=== PATIENT | male | born 1965 | race Two or more races ===

== ENCOUNTER 2017-02-12 11:22 | Emergency (ER) | payer BC ==
--- NOTE | 2017-02-12 12:05 | ER Document Report ---
ED Medical Screen (RME) - General Stated Complaint: FALL ARM PAIN Notes: Issue fell on right elbow last Saturday. Did have a small cut on it at the time. Comes in today complaining of pain, redness and swelling to the right elbow. She reports he's had a fever. I have greeted and performed a rapid initial assessment of this patient. A comprehensive ED assessment and evaluation of the patient, analysis of test results and completion of the medical decision making process will be conducted by additional ED providers. - Related Data Allergies/Adverse Reactions: No Known Allergies Allergy (Verified 02/12/17 12:01) Physical Exam - Extremities Notes: Redness and swelling noted to right elbow. Healed laceration noted.
[2017-02-12 12:45] LABS: ABSOLUTE EOSINOPHILS # (AUTO) 0.1 10^3/uL (0.0-0.6); ABSOLUTE LYMPHOCYTES (AUTO) 1.5 10^3/uL (0.5-4.7); ABSOLUTE MONOCYTES (AUTO) 0.5 10^3/uL (0.1-1.4); BASOPHILS % (AUTO) 0.7 % (0-2); EOSINOPHILS % (AUTO) 1.6 % (0-6); HEMATOCRIT 42.9 % (37.9-51.0); HEMOGLOBIN 14.6 g/dL (13.5-17.0); HGB HCT DIFFERENCE 0.9; LYMPHOCYTES % (AUTO) 21.1 % (13-45); MEAN CORPUSCULAR HEMOGLOBIN 30.1 pg (27.0-33.4); MEAN CORPUSCULAR HGB CONC 34.1 g/dL (32.0-36.0); MEAN CORPUSCULAR VOLUME 88 fl (80-97); MONOCYTES % (AUTO) 6.8 % (3-13); RED BLOOD COUNT 4.86 10^6/uL (4.35-5.55); RED CELL DISTRIBUTION WIDTH 13.3 % (11.5-14.0); SEGMENTED NEUTROPHILS % (AUTO) 69.8 % (42-78); WHITE BLOOD COUNT 7.1 10^3/uL (4.0-10.5)
[2017-02-12 12:58] LABS: ALANINE AMINOTRANSFERASE 23 U/L (21-72); ALBUMIN 4.4 g/dL (3.5-5.0); ALKALINE PHOSPHATASE 60 U/L (38-126); ANION GAP 15 (5-19); ASPARTATE AMINO TRANSFERASE 26 U/L (17-59); BILIRUBIN,DIRECT 0.3 mg/dL (0.0-0.4); BILIRUBIN,TOTAL 0.8 mg/dL (0.2-1.3); BLOOD UREA NITROGEN 18 mg/dL (7-20); CALCIUM 9.6 mg/dL (8.4-10.2); CARBON DIOXIDE 26 mmol/L (22-30); CHLORIDE 105 mmol/L (98-107); GLUCOSE 106 mg/dL (75-110); POTASSIUM 4.4 mmol/L (3.6-5.0); TOTAL PROTEIN 7.5 g/dL (6.3-8.2)
[2017-02-12] MEDS ORDERED: VANCOMYCIN HCL INJ 1000 MG VIAL IV ONE (17:35)
[2017-02-12] MEDS ORDERED: DIPH/PERTUSS(ACELL)/TETANUS VAC/PF 0.5 ML SYR (>=10YO) IM ONE (17:36)
[2017-02-12] MEDS ORDERED: OXYCODONE-ACETAMINOPHEN 5-325 MG TABLET PO ONE (17:41)
--- NOTE | 2017-02-12 17:41 | ER Document Report ---
ED General - General Chief Complaint: Elbow Injury Stated Complaint: FALL ARM PAIN Time seen by provider: 17:37 Mode of Arrival: Ambulatory Information source: Patient Notes: History is obtained by her friend who is interpreting. This is a 51-year-old man from [place] with no medical problems who presents to the emergency room with redness and some pain to the right upper extremity. Patient states that last week he was cleaning the attic and as he was coming down from the stairs he scraped the inside of his right upper extremity while he was falling. He states that he's had some redness to the inner aspect of the arm and has had some fever for the last 4 days. He states that the pain is not significantly increased but it is not gotten any better. Last tetanus unknown TRAVEL OUTSIDE OF THE [place] IN LAST 30 DAYS: No - HPI Onset: Last week Onset/Duration: Gradual Quality of pain: Dull Severity: Moderate Pain Level: 2 Associated symptoms: Fever. denies: Nonproductive cough, Shortness of breath Exacerbated by: Other Relieved by: Denies - Touching Similar symptoms previously: No Recently seen / treated by doctor: No - Related Data Allergies/Adverse Reactions: No Known Allergies Allergy (Verified 02/12/17 12:01) Past Medical History - General Information source: Patient - Social History Smoking Status: Never Smoker Cigarette use (# per day): No Chew tobacco use (# tins/day): No Frequency of alcohol use: Occasional Drug Abuse: None Lives with: Family, Other - Visiting from [place] Family History: Reviewed & Not Pertinent Patient has suicidal ideation: No Patient has homicidal ideation: No - Medical History Medical History: Negative Renal/ Medical History: Denies: Hx Peritoneal Dialysis Surgical Hx: Negative Review of Systems - Review of Systems Notes: Review of systems: Constitutional: Positive for fever and chills EENT: Denies ear pain, sinus tenderness, throat pain, throat swelling. Cardiovascular: Denies chest pain, palpitations, dyspnea or edema. Respiratory: Denies wheezing, cough, hemoptysis. Abdomen: Denies abdominal pain, nausea, vomiting, diarrhea. Denies BRBPR or melena. Genitourinary: Denies dysuria, pyuria, hematuria, flank pain. Musculoskeletal: See H&P Neurologic: Denies headache, photophobia, neck stiffness, weakness. Denies loss of bowel or bladder function. Denies saddle anesthesia. Skin: See H&P Physical Exam - Vital signs Vitals: Temp Pulse Resp BP Pulse Ox 98.6 F 69 16 148/81 H 99 02/12/17 12:03 02/12/17 12:03 02/12/17 12:03 02/12/17 12:03 02/12/17 12:03 Notes: Physical exam: GENERAL: 51-year-old man, alert and oriented 3, no acute distress HEAD: Atraumatic, normocephalic. EYES: Pupils equal round and reactive to light, extraocular movements intact, sclera anicteric, conjunctiva are normal. ENT: TMs normal, nares patent, oropharynx clear without exudates. Moist mucous membranes. NECK: Normal range of motion, supple without lymphadenopathy or JVD. LUNGS: Breath sounds clear to auscultation bilaterally and equal. No wheezes rales or rhonchi. HEART: Regular rate and rhythm without murmurs, rubs or gallops. ABDOMEN: Soft, normoactive bowel sounds. No tenderness to palpation. No guarding, no rebound. No masses appreciated. EXTREMITIES: Patient does have erythema on the inner aspect of the right upper extremity extending from the elbow up along the biceps. There is no fluctuance. He does have a little bit of swelling over the olecranon bursa without any fluctuance at this time. As far as the elbow joint: He can flex and extend without pain to donate and supinate without pain. Distally, the fingers have good sensation and good cap refill, 2+ radial pulse. NEUROLOGICAL: Cranial nerves II through XII grossly intact. Normal speech, normal gait. PSYCH: Normal mood, normal affect. SKIN: Warm, Dry, normal turgor, no rashes or lesions noted. Course - Re-evaluation Re-evalutation: 02/12/17 17:40 Note: Clinically the patient does not have any fluid in the olecranon bursitis as of yet. He does appear to have mild erythema on the inner aspect of the arm so he may have a cellulitis and I'm concerned he may be at risk of developing a bursitis, but there is no significant fluid collection at this point. I'll treat him with a dose of IV antibiotics and send him home with oral antibiotics. He is due to go home to [place] in the beginning of February, so I have told him to come back here if he has any worsening swelling, redness or pain. 02/12/17 18:37 Patient treated with IV vancomycin 1 in the ER. Patient given tetanus shot. - Vital Signs Vital signs: Temp Pulse Resp BP Pulse Ox 98.6 F 69 16 148/81 H 99 02/12/17 18:04 02/12/17 18:04 02/12/17 18:04 02/12/17 18:04 02/12/17 18:04 - Laboratory Result Diagrams: 02/12/17 12:10 02/12/17 12:10 Laboratory results interpreted by me: 02/12/17 12:10 Sodium 146.0 H - Diagnostic Test Radiology reviewed: Image reviewed, Reports reviewed - X-rays show no injuries to the bones. There may be some fullness of the olecranon suggesting an olecranon bursitis. Discharge - Discharge Clinical Impression: cellulitis right upper extremity Condition: Stable Disposition: HOME, SELF-CARE Instructions: Tetanus Immunization Given (OM), Oral Narcotic Medication (OM) , Cellulitis (OM) Additional Instructions: Recommendations: Keep the arm elevated at night to allow the swelling to go down. Start the antibiotic this evening: Bactrim twice daily. Take the Percocet for pain as needed. Follow-up with your doctor when back in [place]. In the meantime, return to the emergency room for worsening pain, worsening swelling, worsening redness or any concerns that you think the infection may be getting worse. Prescriptions: Oxycodone HCl/Acetaminophen [Percocet 5-325 mg Tablet] 1 - 2 tab PO ASDIR PRN # 25 tablet PRN Reason: Sulfamethoxazole/Trimethoprim [Bactrim Ds Tablet] 1 each PO BID #14 tablet
[2017-02-12 20:43] VITALS: BP 139/83
== END 2017-02-12 20:44 | disposition home or self-care (01) ==
LOC: ER 11:22
DX: L03.113 Cellulitis of right upper limb (principal); S59.901A Unspecified injury of right elbow, initial encounter; W19.XXXA Unspecified fall, initial encounter
CPT/HCPCS: 36415; 85025; 80053; 73080; 90715; J3370